=== PATIENT | female | born 1990 | race African-American/Black ===

== ENCOUNTER 2025-10-29 19:47 | Emergency (ER) | payer OTHER ==
[~2025-10-29] VITALS: Ht 162.6 cm; Wt 83.8 kg
[2025-10-29 19:50] VITALS: O2SAT 100
[2025-10-29] MEDS ORDERED: HYDR-3735 MT (22:31)
[2025-10-29] MEDS: HYDROXYZINE 25MG TABLET PO STA (22:45)
[2025-10-29 22:53] VITALS: BP 120/89; PULSE 67; RESP 16; TEMP 36.6; O2SAT 100
== END 2025-10-29 22:54 | disposition home or self-care (01) ==
LOC: ER 19:47
DX: F41.9 Anxiety disorder, unspecified (principal); F90.9 Attention-deficit hyperactivity disorder, unspecified type
CPT/HCPCS: 99283